=== PATIENT | male | born 1940 ===

== ENCOUNTER 2017-07-15 10:36 | Emergency (ER) | payer MEDICARE, MEDICAID ==
[2017-07-15 10:57] VITALS: BMI 23.4
--- NOTE | 2017-07-15 11:50 | RAD ---
HISTORY: Abdominal pain. COMPARISON: No prior studies. FINDINGS: LUNGS: No active pulmonary disease. PLEURA: No significant pleural effusion identified, no pneumothorax apparent. CARDIOVASCULAR: No radiographic findings to suggest acute or significant cardiovascular disease. OSSEOUS STRUCTURES: No significant abnormalities. VISUALIZED UPPER ABDOMEN: Normal. OTHER FINDINGS: None. IMPRESSION: No active disease.
--- NOTE | 2017-07-15 12:09 | ED PDOC ---
Arrival/HPI - General Chief Complaint: Abdominal Pain Time Seen by Provider: 07/15/17 11:11 Historian: Patient - History of Present Illness Narrative History of Present Illness (Text): 07/15/17 12:10 76 year old male, whose PMH includes GERD and dementia, who presents to the emergency department complaining of abdominal pain for a few days associated with nausea, and vomiting. Pain is mainly in the RUQ and patient was sent in by PMD. No other complaints were made. Time/Duration: < week Symptom Onset: Gradual Symptom Course: Unchanged Past Medical History - Provider Review Nursing Documentation Reviewed: Yes - Cardiac Hx Cardiac Disorders: Yes Hx Pacemaker: No - Neurological Hx Neurological Disorder: Yes Hx Dementia: Yes Hx Paralysis: No - Hematological/Oncological Hx Blood Transfusions: No Hx Blood Transfusion Reaction: No - Musculoskeletal/Rheumatological Hx Musculoskeletal Disorders: No - Gastrointestinal Hx Gastrointestinal Disorders: Yes Hx Gastroesophageal Reflux: Yes - Psychiatric Hx Emotional Abuse: No Hx Physical Abuse: No Hx Substance Use: No - Anesthesia Hx Anesthesia Reactions: No Hx Malignant Hyperthermia: No - Suicidal Assessment Feels Threatened In Home Enviroment: No Family/Social History - Physician Review Nursing Documentation Reviewed: Yes Family/Social History: Unknown Family HX Smoking Status: Light Smoker < 10 Cigarettes Daily Hx Alcohol Use: No Hx Substance Use: No Allergies/Home Meds Allergies/Adverse Reactions: Allergies No Known Allergies Allergy (Verified 07/15/17 11:10) Home Medications: Home Meds Medication Instructions Recorded Confirmed Donepezil HCl [Aricept] 10 mg PO DAILY 06/28/15 07/15/17 Omeprazole 40 mg PO DAILY 06/29/15 07/15/17 Review of Systems - Physician Review All systems were reviewed & negative as marked: Yes - Review of Systems Constitutional: absent: Fevers Respiratory: absent: SOB Cardiovascular: absent: Chest Pain Gastrointestinal: Abdominal Pain, Nausea, Vomiting Physical Exam Vital Signs Reviewed: Yes Vital Signs Pulse Resp BP Pulse Ox 07/15/17 10:56 88 18 112/65 97 Temperature: Afebrile Blood Pressure: Normal Pulse: Regular Respiratory Rate: Normal Appearance: Positive for: Well-Appearing, Non-Toxic, Comfortable Pain Distress: None Mental Status: Positive for: Alert and Oriented X 3 - Systems Exam Head: Present: Atraumatic, Normocephalic Pupils: Present: PERRL Extroacular Muscles: Present: EOMI Conjunctiva: Present: Normal Respiratory/Chest: Present: Clear to Auscultation, Good Air Exchange. No: Respiratory Distress, Accessory Muscle Use, Wheezes, Rales, Rhonchi Cardiovascular: Present: Regular Rate and Rhythm, Normal S1, S2. No: Murmurs Abdomen: Present: Tenderness (RUQ), Normal Bowel Sounds. No: Distention, Peritoneal Signs, Rebound, Guarding Neurological: Present: GCS=15, CN II-XII Intact, Speech Normal Skin: Present: Warm, Dry, Normal Color. No: Rashes Psychiatric: Present: Alert, Oriented x 3, Normal Insight, Normal Concentration Medical Decision Making ED Course and Treatment: 07/15/17 Impression: 76 year old male with RUQ tenderness complaining of abdominal pain associated with nausea, and vomiting. Plan: -- EKG -- Chest X-ray -- Labs -- Protonix and Zofran -- Reassess and disposition Progress Notes: 07/15/17 EKG: Ordered, reviewed, and independently interpreted the EKG. Rate : 63 BPM Rhythm : NSR Interpretation : No ST-segment elevations or depressions, no T-wave inversions, normal intervals. 07/15/17 18:25 case initally discussed with dr reilly upon pt arrival. advises pt can be seen tommorow if ct neg. later ct results as infrarenal aaa. dr abhijit reilly updated. pt updated on results. 07/15/17 18:34 ct also noted several yrs ago no interval change. known anuresym. - Lab Interpretations Lab Results: 07/15/17 12:05 07/15/17 12:05 Lab Results 07/15/17 12:05: Sodium 143, Potassium 4.5, Chloride 106, Carbon Dioxide 29, Anion Gap 13, BUN 16, Creatinine 0.9, Est GFR ( Amer) > 60, Est GFR (Non- Af Amer) > 60, Random Glucose 95, Calcium 9.4, Magnesium 2.1, Total Bilirubin 0.9, AST 24, ALT 34, Alkaline Phosphatase 67, Lactate Dehydrogenase 301 L, Total Creatine Kinase 43, Troponin I < 0.01, Total Protein 6.9, Albumin 4.2, Globulin 2.7, Albumin/Globulin Ratio 1.6, Lipase 69 07/15/17 12:05: PT 12.1, INR 1.05, APTT 31.9 04/30/18 12:05: WBC 4.3 L, RBC 4.56, Hgb 13.7 L, Hct 39.7 L, MCV 87.1, MCH 30.0 , MCHC 34.5, RDW 13.5, Plt Count 189, MPV 9.5, Gran % 53.9, Lymph % (Auto) 35.6 H, Rusk % (Auto) 6.3 H, Eos % (Auto) 3.3, Baso % (Auto) 0.9, Gran # 2.32, Lymph # (Auto) 1.5, Rusk # (Auto) 0.3, Eos # (Auto) 0.1, Baso # (Auto) 0.04 I have reviewed the lab results: Yes - RAD Interpretation Radiology Orders: 07/15/17 11:25 CHEST PORTABLE [RAD] Stat 07/15/17 12:10 ABDOMEN COMPLETE [US] Stat 07/15/17 13:50 ABD & PELVIS IV CONTRAST ONLY [CT] 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 - EKG Interpretation Interpreted by ED Physician: Yes Type: 12 lead EKG - Medication Orders Current Medication Orders: Discontinued Medications Ondansetron HCl (Zofran Inj) 4 mg IVP STAT STA Stop: 07/15/17 11:27 Last Admin: 07/15/17 12:09 Dose: 4 mg IVP Administration Document 07/15/17 12:09 MR (Rec: 07/15/17 12:09 MR [id number]) Charges for Administration # of IVP Administrations 1 Pantoprazole Sodium (Protonix Inj) 40 mg IVP STAT STA Stop: 07/15/17 11:27 Last Admin: 07/15/17 12:09 Dose: 40 mg IVP Administration Document 07/15/17 12:09 MR (Rec: 07/15/17 12:09 MR [id number]) Charges for Administration # of IVP Administrations 1 - Scribe Statement The provider has reviewed the documentation as recorded by the Laura Webb Provider Scribe Attestation: All medical record entries made by the Scribe were at my direction and personally dictated by me. I have reviewed the chart and agree that the record accurately reflects my personal performance of the history, physical exam, medical decision making, and the department course for this patient. I have also personally directed, reviewed, and agree with the discharge instructions and disposition. Disposition/Present on Arrival - Present on Arrival Any Indicators Present on Arrival: No History of DVT/PE: No History of Uncontrolled Diabetes: No Urinary Catheter: No History of Decub. Ulcer: No History Surgical Site Infection Following: None - Disposition Have Diagnosis and Disposition been Completed?: Yes Diagnosis: Abdominal pain, AAA (abdominal aortic aneurysm) Disposition: HOME/ ROUTINE Disposition Time: 18:27 Patient Problems: Current Active Problems Problem Status Onset AAA (abdominal aortic aneurysm) Acute Abdominal pain Acute Condition: STABLE Discharge Instructions (ExitCare): Acute Abdomen (Belly Pain), Aortic Aneurysm (DC) Print Language: ROMANSH Additional Instructions: please follow up with your doctor. return to emergency room with worsening symptoms. please discuss your ct findings with your doctor. he is expecting to see your tommorow. Referrals: Nazario Reilly [Family Provider] - Follow up with primary Forms: [facility] (Peruvian)
[2017-07-15 12:20] LABS: BASO # 0.04 K/mm3 (0.0-2.0); BASO % 0.9 % (0.0-3.0); EOS # 0.1 (0.0-0.7); EOS % 3.3 % (1.5-5.0); GRAN # 2.32 (1.4-6.5); GRAN % 53.9 % (50.0-68.0); HEMOGLOBIN 13.7 g/dL (14.0-18.0); LYMPH # 1.5 (1.2-3.4); LYMPH % 35.6 % (22.0-35.0); MEAN CELL VOLUME 87.1 fl (80.0-105.0); MEAN CORPUSCULAR HGB CONC 34.5 g/dl (31.0-37.0); MEAN PLATELET VOLUME 9.5 fl (7.0-11.0); MONO # 0.3 (0.1-0.6); MONO % 6.3 % (1.0-6.0); RBC 4.56 10^6/uL (3.5-6.1); RED CELL DISTRIBUTION WIDTH 13.5 % (11.5-14.5); WHITE BLOOD COUNT 4.3 10^3/ul (4.5-11.0)
[2017-07-15 12:29] LABS: INR 1.05 (0.93-1.08); PARTIAL THROMBOPLASTIN TIME 31.9 Seconds (25.1-36.5); PROTHROMBIN TIME 12.1 SECONDS (9.4-12.5)
[2017-07-15 12:33] LABS: ALB/GLOB RATIO 1.6 (1.1-1.8); ALBUMIN 4.2 g/dL (3.0-4.8); ALT/SGPT 34 U/L (7-56); AST/SGOT 24 U/L (17-59); BLOOD UREA NITROGEN 16 mg/dL (7-21); CALCIUM 9.4 mg/dL (8.4-10.5); GFR AFRICAN-AMERICAN > 60; GFR NON-AFRICAN AMERICAN > 60; LIPASE 69 U/L (23-300)
[2017-07-15 12:44] LABS: TROPONIN I < 0.01 ng/mL
--- NOTE | 2017-07-15 14:09 | US ---
HISTORY: right sided pain COMPARISON: 12/08/2015 CT abdomen and pelvis TECHNIQUE: Sonographic evaluation of the abdomen. FINDINGS: LIVER: Measures 13.2 cm. Patent portal vein. Portal venous flow: Hepatopetal. Unremarkable echogenicity of the liver parenchyma. No mass. No intrahepatic bile duct dilatation. GALLBLADDER: Status post cholecystectomy. No abnormality is seen in the gallbladder fossa. COMMON BILE DUCT: Measures 2.6 mm. No stones. No dilatation. PANCREAS: Unremarkable as visualized. No mass. No ductal dilatation. RIGHT KIDNEY: Measures 4.4 x 10.2cm. Normal echogenicity. No calculus, mass, or hydronephrosis. Multiple renal cysts unchanged compared prior studies LEFT KIDNEY: Measures 5.4 x 9.7cm. Midpole calculus less than 1 cm in nonobstructing Multiple renal cysts unchanged compared prior studies SPLEEN: Normal in size and contour. No mass. AORTA: No aneurysmal dilatation. IVC: Unremarkable. OTHER FINDINGS: None. IMPRESSION: No acute findings related to/accounting for the clinical presentation. Additional benign and/or incidental findings described above.
--- NOTE | 2017-07-15 18:12 | CT ---
PROCEDURE: CT Abdomen and Pelvis with contrast HISTORY: Right-sided abdominal pain COMPARISON: 12/08/2015. TECHNIQUE: CT scan of the abdomen and pelvis was performed after administration of intravenous contrast. Oral contrast was not administered. Coronal and sagittal reformatted images were obtained. Contrast dose: 100 mL Omnipaque 350 Radiation dose: Total exam DLP = 283.05 mGy-cm. This CT exam was performed using one or more of the following dose reduction techniques: Automated exposure control, adjustment of the mA and/or kV according to patient size, and/or use of iterative reconstruction technique. FINDINGS: LOWER THORAX: There is dependent atelectasis in the visualized lungs. LIVER: The liver is normal in size and there is homogeneous enhancement. No gross lesion or ductal dilatation. GALLBLADDER AND BILE DUCTS: Surgically absent. PANCREAS: Normal in size with homogeneous enhancement. No gross lesion or ductal dilatation. SPLEEN: Normal in size and appearance. ADRENALS: No discrete nodule. KIDNEYS AND URETERS: Both kidneys are normal in size and there is homogeneous enhancement. There is a 4 mm nonobstructing stone in the interpolar region of the left kidney. No hydronephrosis. No solid mass. VASCULATURE: There is a fusiform infrarenal aortic aneurysm with peripheral thrombus. . BOWEL: The small bowel loops are normal in caliber and there is fecalization of small bowel contents. There is large amount of stool in the colon. No bowel dilatation or obstruction. APPENDIX: Normal appendix. PERITONEUM: No free fluid. No free air. LYMPH NODES: No enlarged lymph nodes. BLADDER: Unremarkable. REPRODUCTIVE: There is mild enlargement of this prostate gland with central coarse calcifications. . BONES: No acute fracture. Multilevel degenerative changes. OTHER FINDINGS: There is a small sliding hiatal hernia. IMPRESSION: 1. No acute abdominal or pelvic abnormality. 2. Normal caliber small bowel loops with fecalization of small bowel contents and moderate amount of stool in the colon suggestive of constipation. No evidence of bowel obstruction. 3. Fusiform infrarenal aortic aneurysm with peripheral thrombus. 4. Small sliding hiatal hernia.
--- NOTE | 2017-07-15 20:15 | CARD ---
APPROVED REPORT EKG Measurement Heart [id number] FL [id number] [id number] <Conclusion> Normal sinus rhythm Normal ECG
[2017-07-15 20:28] VITALS: O2SAT 100
[2017-07-15 20:29] VITALS: BP 150/88; PULSE 79; RESP 18
== END 2017-07-15 18:30 | disposition home or self-care (01) ==
LOC: ED 10:36
DX: I71.4 Abdominal aortic aneurysm, without rupture (principal); R10.9 Unspecified abdominal pain; F17.210 Nicotine dependence, cigarettes, uncomplicated
CPT/HCPCS: 71045; 74177; 76700; 80053; 82550; 83615; 83690; 83735; 84484; 85025; 85610; 85730; 93005; 96374; 96375; 99284; C9113; J2405

== ENCOUNTER 2018-04-24 08:00 | Outpatient (CLI) | payer MEDICARE, MEDICAID | END 2018-04-24 08:01 | disposition home or self-care (01) | LOC: RAD 08:00 ==